=== PATIENT | female | born 1930 | race Caucasian/White ===

== ENCOUNTER 2017-10-05 11:54 | Observation (INO) | payer MEDICARE, OTHER ==
--- NOTE | 2017-10-05 12:31 | EDM.PDOC ---
ED HPI GENERAL MEDICAL PROBLEM - General Chief Complaint: Neuro Symptoms/Deficits Stated Complaint: dizzy Time Seen by Provider: 10/05/17 12:20 Source of Information: Reports: Patient History Limitations: Reports: No Limitations - History of Present Illness INITIAL COMMENTS - FREE TEXT/NARRATIVE: Todd is an 86 year old female with PMH of TIA, hypertension, cataracts, shingles , GERD, and hyperlipidemia, who presents to the ED with complaints of dizziness. She reports the dizziness started at 0930 this morning. She describes it as a lightheaded sensation. She reports a history of TIA, which started with dizziness, so she became concerned. She does report her blood pressure was elevated at home as well. She did take her blood pressure medications, as well as her Plavix this morning. Denies any chest pain, headache , shortness of breath, numbness, tingling, weakness in extremity, facial droop, or difficulty ambulating. She reports she did have a head cold about a month ago , but she has otherwise been feeling well. She is conversing in full complete sentences. She is alert and oriented x4. She denies any pain. She has not had any weakness. She is moving all extremities without difficulty. NIH is a zero. Onset: Today Onset Date: 10/05/17 Onset Time: 09:30 Duration: Constant Location: Reports: Head Associated Symptoms: Denies: Confusion, Chest Pain, Cough, cough w sputum, Diaphoresis, Fever/Chills, Headaches, Loss of Appetite, Malaise, Nausea/Vomiting , Rash, Seizure, Shortness of Breath, Syncope, Weakness - Related Data Allergies Allergy/AdvReac Type Severity Reaction Status Date / Time aspirin Allergy Nausea Verified 10/05/17 12:51 Home Meds: Home Meds Clopidogrel [Plavix] 75 mg PO DAILY 03/26/16 [History] Prednisolone [IJD: Prelone 15 MG/5 ML] 1 drop EYERT BID 03/26/16 [History] Simvastatin [Zocor] 20 mg PO BEDTIME 03/26/16 [History] Timolol [Betimol] 1 drop EYEBOTH BID 03/26/16 [History] amLODIPine [Norvasc] 5 mg PO DAILY 03/26/16 [History] Loratadine [Claritin] 10 mg PO DAILY PRN 10/05/17 [History] guaiFENesin [Mucinex] 600 mg PO BEDTIME PRN 10/05/17 [History] Past Medical History HEENT History: Reports: Cataract Cardiovascular History: Reports: High Cholesterol, Hypertension Gastrointestinal History: Reports: GERD, Other (See Below) Other Gastrointestinal History: GLUTEN INTOL Genitourinary History: Reports: Other (See Below) Other Genitourinary History: frequent urination Musculoskeletal History: Reports: Fracture Other Musculoskeletal History: bilateral arms, collar bone fx Neurological History: Reports: TIA Other Neuro History: [id number] - Past Surgical History HEENT Surgical History: Reports: Cataract Surgery Female Surgical History: Reports: Section, Hysterectomy Social & Family History - Tobacco Use Smoking Status *Q: Never Smoker Years of Tobacco use: 1 - Caffeine Use Caffeine Use: Reports: None - Alcohol Use Days Per Week of Alcohol Use: 0 - Recreational Drug Use Recreational Drug Use: No ED ROS GENERAL - Review of Systems Review Of Systems: See Below Constitutional: Reports: No Symptoms. Denies: Fever, Chills, Malaise, Weakness , Fatigue HEENT: Reports: No Symptoms. Denies: Rhinitis, Sinus Problem, Throat Pain, Vision Change Respiratory: Reports: No Symptoms. Denies: Shortness of Breath, Pleuritic Chest Pain, Cough, Sputum Cardiovascular: Reports: Blood Pressure Problem (elevated), Lightheadedness. Denies: Chest Pain, Dyspnea on Exertion, Edema, Palpitations, Syncope Endocrine: Reports: No Symptoms. Denies: Fatigue GI/Abdominal: Reports: No Symptoms. Denies: Abdominal Pain, Diarrhea, Nausea, Vomiting : Reports: Frequency. Denies: Dysuria, Flank Pain, Urgency Musculoskeletal: Reports: No Symptoms Skin: Reports: No Symptoms. Denies: Cyanosis, Pallor, Diaphoresis Neurological: Reports: Dizziness. Denies: Confusion, Headache, Numbness, Pre- Existing Deficit, Syncope, Tingling, Difficulty Walking, Weakness, Gait Disturbance Psychiatric: Reports: No Symptoms. Denies: Anxiety Hematologic/Lymphatic: Reports: Easy Bleeding, Easy Bruising Immunologic: Reports: No Symptoms ED EXAM, NEURO - Physical Exam Exam: See Below Exam Limited By: No Limitations General Appearance: Alert, WD/WN, No Apparent Distress Eye Exam: Right Eye: Abnormal Pupil, Other (previous shingles), Left Eye: Normal Fundi, Normal Inspection, PERRL, Bilateral Eye: EOMI Ears: Normal External Exam, Normal Canal, Hearing Grossly Normal, Normal TMs Nose: Normal Inspection, Normal Mucosa, No Blood Throat/Mouth: Normal Inspection, Normal Lips, Normal Teeth, Normal Gums, Normal Oropharynx, Normal Voice, No Airway Compromise Head Exam: Atraumatic, Normocephalic Neck: Normal Inspection, Supple, Non-Tender, Full Range of Motion Respiratory/Chest: No Respiratory Distress, Lungs Clear, Normal Breath Sounds, No Accessory Muscle Use, Chest Non-Tender Cardiovascular: Normal Peripheral Pulses, Regular Rate, Rhythm, No Edema, No Gallop, No JVD, No Murmur, No Rub GI/Abdominal: Normal Bowel Sounds, Soft, Non-Tender, No Organomegaly, No Distention, No Abnormal Bruit, No Mass Neurological: Alert, Normal Mood/Affect, Normal Dorsiflexion, CN II-XII Intact, Normal Plantar Flexion, Normal Gait, Normal Reflexes, No Motor/Sensory Deficits , Oriented x 3. No: Abnormal Gait Back Exam: Normal Inspection, Full Range of Motion. No: CVA Tenderness (L), CVA Tenderness (R) Extremities: Normal Inspection, Normal Range of Motion, Non-Tender, No Pedal Edema, Normal Capillary Refill Psychiatric: Normal Affect, Normal Mood Skin Exam: Warm, Dry, Intact, Normal Color, No Rash Course - Vital Signs Last Recorded V/S: Last Vital Signs Temp 97.7 F 10/05/17 13:06 Pulse 89 10/05/17 13:18 Resp 20 10/05/17 13:18 BP 129/78 10/05/17 13:18 Pulse Ox 99 10/05/17 13:18 - Orders/Labs/Meds Orders: Active Orders 24 hr Category Date Time Status Patient Status Manage Transfer [TRANSFER] Routine ADT 10/05/17 14:22 Ordered Head wo Cont [CT] Stat Exams 10/05/17 12:13 Taken Resuscitation Status Routine Resus Stat 10/05/17 14:25 Ordered Labs: Laboratory Tests 10/05/17 10/05/17 10/05/17 Range/Units 12:28 12:28 12:31 WBC 5.2 (5.0-10.0) 10^3/uL RBC 4.72 (4.00-5.50) 10^6/uL Hgb 14.2 (12.0-16.0) g/dL Hct 42.3 (37.0-47.0) % MCV 89.6 (82.0-94.0) fL MCH 30.1 (27.0-32.0) pg MCHC 33.6 (33.0-38.0) g/dL RDW Coeff of Jasmeet 12.1 (11.0-15.0) % Plt Count 284 (150-400) 10^3/uL Neut % (Auto) 53.9 (35-85) % Lymph % (Auto) 32.6 (10-55) % [place] % (Auto) 9.7 (0-16) % Eos % (Auto) 2.7 (0-5) % Baso % (Auto) 1.1 (0-3) % Neut # (Auto) 2.82 (1.80-7.00) 10^3/uL Lymph # (Auto) 1.71 (1.00-4.80) 10^3/uL [place] # (Auto) 0.51 (0.00-0.80) 10^3/uL Eos # (Auto) 0.14 (0.00-0.45) 10^3/uL Baso # (Auto) 0.06 10^3/uL PT 10.4 (9.7-12.3) SEC INR 0.96 (0.92-1.18) APTT 25.2 (20.0-45.0) SEC Sodium 142 (136-145) mEq/L Potassium 4.5 (3.5-5.0) mEq/L Chloride 104 (98-106) mEq/L Carbon Dioxide 27 (21-32) mmol/L BUN 14 (7-18) mg/dL Creatinine 0.9 (0.6-1.0) mg/dL Est Cr Clr Drug Dosing 32.60 mL/min Estimated GFR (MDRD) 59 L (>=60) mL/min Glucose 101 H (75-99) mg/dL Calcium 9.4 (8.4-10.1) mg/dL Troponin I < 0.017 (0.00-0.06) ng/mL C-Reactive Protein < 0.2 L (0.2-0.8) mg/dL Urine Color (YELLOW) Urine Appearance (CLEAR) Urine pH (4.5-8.0) Ur Specific [place] (1.003-1.020) Urine Protein (NEGATIVE) mg/dL Urine Glucose (UA) (NEGATIVE) mg/dL Urine Ketones (NEGATIVE) mg/dL Urine Occult Blood (NEGATIVE) Urine Nitrite (NEGATIVE) Urine Bilirubin (NEGATIVE) Urine Urobilinogen (0.2-1.0) EU/dL Ur Leukocyte Esterase (NEGATIVE) Urine RBC (0-5) /HPF Urine WBC (0-5) /HPF 10/05/17 Range/Units 12:33 WBC (5.0-10.0) 10^3/uL RBC (4.00-5.50) 10^6/uL Hgb (12.0-16.0) g/dL Hct (37.0-47.0) % MCV (82.0-94.0) fL MCH (27.0-32.0) pg MCHC (33.0-38.0) g/dL RDW Coeff of Jasmeet (11.0-15.0) % Plt Count (150-400) 10^3/uL Neut % (Auto) (35-85) % Lymph % (Auto) (10-55) % [place] % (Auto) (0-16) % Eos % (Auto) (0-5) % Baso % (Auto) (0-3) % Neut # (Auto) (1.80-7.00) 10^3/uL Lymph # (Auto) (1.00-4.80) 10^3/uL [place] # (Auto) (0.00-0.80) 10^3/uL Eos # (Auto) (0.00-0.45) 10^3/uL Baso # (Auto) 10^3/uL PT (9.7-12.3) SEC INR (0.92-1.18) APTT (20.0-45.0) SEC Sodium (136-145) mEq/L Potassium (3.5-5.0) mEq/L Chloride (98-106) mEq/L Carbon Dioxide (21-32) mmol/L BUN (7-18) mg/dL Creatinine (0.6-1.0) mg/dL Est Cr Clr Drug Dosing mL/min Estimated GFR (MDRD) (>=60) mL/min Glucose (75-99) mg/dL Calcium (8.4-10.1) mg/dL Troponin I (0.00-0.06) ng/mL C-Reactive Protein (0.2-0.8) mg/dL Urine Color Light yellow (YELLOW) Urine Appearance Clear (CLEAR) Urine pH 7.0 (4.5-8.0) Ur Specific [place] 1.015 (1.003-1.020) Urine Protein Negative (NEGATIVE) mg/dL Urine Glucose (UA) Negative (NEGATIVE) mg/dL Urine Ketones Negative (NEGATIVE) mg/dL Urine Occult Blood Trace-lysed H (NEGATIVE) Urine Nitrite Negative (NEGATIVE) Urine Bilirubin Negative (NEGATIVE) Urine Urobilinogen 0.2 (0.2-1.0) EU/dL Ur Leukocyte Esterase Negative (NEGATIVE) Urine RBC 0-5 (0-5) /HPF Urine WBC Not seen (0-5) /HPF - Radiology Interpretation Free Text/Narrative:: Ct Head negative for any acute infarct or bleed. CT Results Date: 10/05/17 - Re-Assessments/Exams Free Text/Narrative Re-Assessment/Exam: Discussed lab work, EKG, and CT of head with patient and friend. Lab work is all stable. CT is negative. Discussed case with Dr. Talbot. Will admit patient to observation. Departure - Departure Time of Disposition: 02:20 Disposition: Refer to Observation Condition: Good Clinical Impression: Dizziness - Discharge Information Referrals: Patel Talbot MD [Primary Care Provider] - Forms: ED Department Discharge - Problem List & Annotations (1) Hypertension SNOMED Code(s): 60657600 Code(s): I10 - ESSENTIAL (PRIMARY) HYPERTENSION Status: Chronic Qualifiers: Hypertension type: essential hypertension Qualified Code(s): I10 - Essential (primary) hypertension (2) Dizziness SNOMED Code(s): 127339292 Code(s): R42 - DIZZINESS AND GIDDINESS Status: Acute Priority: High - Problem List Review Problem List Initiated/Reviewed/Updated: Yes - My Orders Last 24 Hours: My Active Orders 10/05/17 12:13 Head wo Cont [CT] Stat 10/05/17 14:22 Patient Status Manage Transfer [TRANSFER] Routine 10/05/17 14:25 Resuscitation Status Routine - Assessment/Plan Admission H&P: Please use this note as an admission H&P Last 24 Hours: My Active Orders 10/05/17 12:13 Head wo Cont [CT] Stat 10/05/17 14:22 Patient Status Manage Transfer [TRANSFER] Routine 10/05/17 14:25 Resuscitation Status Routine Plan: Will admit patient to observation with telemetry to Dr. Talbot
[2017-10-05 12:50] LABS: CHLORIDE,CL 104 mEq/L (98-106); SODIUM,NA 142 mEq/L (136-145)
[2017-10-05] MEDS ORDERED: Temazepam 15 MG Cap PO PRN (14:55)
[2017-10-05] MEDS ORDERED: LORATADINE 10 MG PO PRN (14:55)
[2017-10-05] MEDS ORDERED: Acetaminophen 325 MG Tab PO PRN (14:55)
[2017-10-05] MEDS ORDERED: Magnesium Hydroxide 400 MG/5 ML Susp 30 ML Cup PO PRN (14:55)
[2017-10-05] MEDS ORDERED: Sodium Chloride 0.9% 10 ML Syringe FLUSH PRN (14:55)
[2017-10-05] MEDS ORDERED: guaiFENesin 200 MG Tab PO PRN (14:55)
[2017-10-05] MEDS ORDERED: Ondansetron 4 MG/2 ML SDV IV PRN (14:55)
[2017-10-05] MEDS ORDERED: Simvastatin 20 MG Tab PO SCH (20:00)
[2017-10-05] MEDS ORDERED: SIMVASTATIN 40 MG PO SCH (20:00)
[2017-10-05] MEDS: PREDNISOLONE ACETATE 1% EYERT SCH (20:30)
[2017-10-05] MEDS: TIMOLOL MALEATE 0.5% EYERT SCH (20:30)
[2017-10-06] MEDS ORDERED: amLODIPine 2.5 MG Tab PO SCH (08:00)
[2017-10-06] MEDS ORDERED: amLODIPine 10 MG Tab*PT OWN MED PO SCH (08:00)
[2017-10-06] MEDS ORDERED: Clopidogrel 75 MG Tab*PT OWN MED PO SCH (08:00)
[2017-10-06] MEDS: PREDNISOLONE ACETATE 1% EYERT SCH (08:15)
[2017-10-06] MEDS: TIMOLOL MALEATE 0.5% EYERT SCH (08:16)
[2017-10-06 08:47] VITALS: BP 140/68
--- NOTE | 2017-10-08 08:50 | DISCH ---
ADMISSION DIAGNOSES: 1. Lightheadedness, questionable transient ischemic attack. 2. Anxiety. DISCHARGE DIAGNOSIS: 1. HISTORY OF TRANSIENT ISCHEMIC ATTACK. 2. ANXIETY, PROBABLY RELATED TO DEPRESSION. 3. HYPERTENSION. 4. HYPERLIPIDEMIA. HISTORY: The patient is an 86-year-old female with a prior history of TIA. She presented with some dizziness and feeling some anxiety. She was concerned about a TIA, workup was negative in the emergency room. It was elected to put her in overnight for observation. HOSPITAL COURSE: The patient did well while here. She really did not have any difficulty. Neuro checks were fine. She had no signs of any deficits during her stay. She did admit to significant issues with dizziness and we are going to start her on daily dose of sertraline. We will follow her up clinically as appropriate. She has had routine followup cares regarding her carotids in the past and with aggressive lipid management. This time, I am not going to make any other changes. I will see her back in my office in 2 weeks. COMPLICATIONS DURING HER STAY: None. CONSULTATIONS: None. DISPOSITION: Discharged to home. JENNY /[id number]
== END 2017-10-06 10:20 | disposition home or self-care (01) ==
LOC: CC.ED 11:54 → CC.MS 14:51 → UNDOADMOB 14:51 → CC.MS 14:55
PROVIDERS: ADMIT Nurse Practitioner Family; ATTEND Family Medicine
DX: R42 Dizziness and giddiness (principal); F41.8 Other specified anxiety disorders; I10 Essential (primary) hypertension; E78.5 Hyperlipidemia, unspecified; Z86.73 Personal history of transient ischemic attack (TIA), and cerebral infarction without residual deficits; K21.9 Gastro-esophageal reflux disease without esophagitis; Z88.6 Allergy status to analgesic agent; Z79.02 Long term (current) use of antithrombotics/antiplatelets; Z79.899 Other long term (current) drug therapy; Z90.710 Acquired absence of both cervix and uterus; Z98.890 Other specified postprocedural states
CPT/HCPCS: 36415; 70450; 80048; 81001; 84484; 85025; 85610; 85730; 86140; 93005; 99285; A9270; 93010; 99217; 99220; G0378

== ENCOUNTER 2018-10-25 17:09 | Inpatient (IN) | payer MEDICARE, OTHER ==
[2018-10-25] MEDS ORDERED: Acetaminophen 325 MG Tab PO PRN (17:13)
[2018-10-25] MEDS ORDERED: Sodium Chloride 0.9% 10 ML Syringe FLUSH PRN (17:13)
[2018-10-25] MEDS: Pantoprazole 40 MG Vial IVPUSH SCH (18:00)
[2018-10-25] MEDS: Lactated Ringers 1,000 ML IV SCH (18:10)
[2018-10-25] MEDS ORDERED: Iopamidol 612 MG/ML 100 ML Bottle IVPUSH ONE (20:48)
[2018-10-25] MEDS: ACETAMINOPHEN PO SCH (21:18)
[2018-10-25] MEDS: Timolol Maleate 0.5% Ophth Soln 5 ML Bottle EYEBOTH SCH (21:19)
[2018-10-25] MEDS: prednisoLONE Acetate 1% Ophth Susp 5 ML Bottle EYERT SCH (21:19)
--- NOTE | 2018-10-25 22:27 | PCM.SN ---
- Free Text/Narrative Note: Call from radiologist reporting 15 cm segment of thickened bowel wall with surrounding inflammation in distal descending and proximal sigmoid colon of likely infectious etiology. Stool studies pending. Will prophylactically start IV Flagyl while awaiting stool studies.
[2018-10-25] MEDS ORDERED: metroNIDAZOLE/Normal Saline 500 MG in Premix Bag 1 BAG IV SCH (22:30)
[2018-10-25] MEDS: metroNIDAZOLE/Normal Saline 500 MG in Premix Bag 1 BAG IV SCH (23:49)
[2018-10-26 08:10] LABS: CHLORIDE,CL 104 mEq/L (98-106); SODIUM,NA 141 mEq/L (136-145)
[2018-10-26] MEDS: Lactated Ringers 1,000 ML IV SCH (08:32)
[2018-10-26] MEDS: metroNIDAZOLE/Normal Saline 500 MG in Premix Bag 1 BAG IV SCH ×2 (08:33→16:31)
[2018-10-26] MEDS: amLODIPine 10 MG Tab PO SCH (08:33)
[2018-10-26] MEDS: Timolol Maleate 0.5% Ophth Soln 5 ML Bottle EYEBOTH SCH ×2 (08:36→19:36)
[2018-10-26] MEDS: prednisoLONE Acetate 1% Ophth Susp 5 ML Bottle EYERT SCH ×2 (08:36→19:36)
--- NOTE | 2018-10-26 13:51 | PCM.PN ---
- General Info Date of Service: 10/26/18 Admission Dx/Problem (Free Text): Diarrhea Lower GI bleed Subjective Update: Todd is a pleasant 87 year old female who was admitted to the hospital from the clinic 10/25/2017 for c/o ongoing diarrhea and lower GI bleed. She had reportedly been having episodes of diarrhea lasting ~ 4 days at a time intermittently over the last 20-25 days. Ports that yesterday she did note some bright red blood in her stools. Reports blood is small amount and at times has clots. She reports the last few times she had bowel movements she did feel lightheaded while sitting on the stool. She has not had any bloody stools since admit. Nursing reports stools are soft and not watery or loose. She does report she continues to have some ongoing abdominal pain on the right lateral side and left lower abdomen. Describes it as mild and cramping. Reports she has cramping anytime she drinks something. She did have a CT of her abdomen and pelvis yesterday revealing a 15 cm segment of thickened bowel wall and surrounding inflammation in her distal descending and proximal sigmoid colon favorable to be infectious. Stool for C. difficile was not able to be ran as stool was formed. Nursing staff reports she has not been having loose stools. Stool culture is pending. She was started on Flagyl IV last evening and has been tolerating well. She has been afebrile. Has been tolerating clear liquid diet. Functional Status: Reports: Pain Controlled, Tolerating Diet (clear liquid), Ambulating, Urinating. Denies: New Symptoms - Review of Systems General: Denies: Fever, Weakness, Fatigue, Chills Pulmonary: Reports: No Symptoms Cardiovascular: Reports: No Symptoms Gastrointestinal: Reports: Abdominal Pain, Diarrhea (soft stools), Hematochezia. Denies: Decreased Appetite, Nausea, Vomiting Genitourinary: Reports: No Symptoms Musculoskeletal: Reports: No Symptoms Skin: Reports: No Symptoms Neurological: Reports: No Symptoms Psychiatric: Reports: No Symptoms - Patient Data Vitals - Most Recent: Last Vital Signs Temp 97.4 F 10/26/18 12:00 Pulse 71 10/26/18 12:00 Resp 20 10/26/18 12:00 BP 122/52 L 10/26/18 12:00 Pulse Ox 96 10/26/18 12:00 Weight - Most Recent: 122 lb 1.6 oz I&O - Last 24 Hours: Intake & Output 10/25/18 10/26/18 10/26/18 22:59 06:59 14:59 Intake Total 8185 957 7328 Output Total 200 200 475 Balance 1000 200 525 Lab Results Last 24 Hours: Laboratory Results - last 24 hr 10/25/18 10/25/18 10/26/18 Range/Units 17:13 17:13 01:00 WBC 8.9 (5.0-10.0) 10^3/uL RBC 4.93 (4.00-5.50) 10^6/uL Hgb 14.9 (12.0-16.0) g/dL Hct 44.2 (37.0-47.0) % MCV 89.7 (82.0-94.0) fL MCH 30.2 (27.0-32.0) pg MCHC 33.7 (33.0-38.0) g/dL RDW Coeff of Jasmeet 12.2 (11.0-15.0) % Plt Count 234 (150-400) 10^3/uL Neut % (Auto) 75.4 (35-85) % Lymph % (Auto) 15.2 (10-55) % [place] % (Auto) 8.7 (0-16) % Eos % (Auto) 0.4 (0-5) % Baso % (Auto) 0.3 (0-3) % Neut # (Auto) 6.71 (1.80-7.00) 10^3/uL Lymph # (Auto) 1.36 (1.00-4.80) 10^3/uL [place] # (Auto) 0.78 (0.00-0.80) 10^3/uL Eos # (Auto) 0.04 (0.00-0.45) 10^3/uL Baso # (Auto) 0.03 10^3/uL Sodium 141 (136-145) mEq/L Potassium 3.6 D (3.5-5.0) mEq/L Chloride 102 (98-106) mEq/L Carbon Dioxide 28 (21-32) mmol/L BUN 14 (7-18) mg/dL Creatinine 0.9 (0.6-1.0) mg/dL Est Cr Clr Drug Dosing 31.98 mL/min Estimated GFR (MDRD) 59 L (>=60) mL/min Glucose 107 H (75-99) mg/dL Calcium 9.3 (8.4-10.1) mg/dL Total Bilirubin 0.7 (0.0-1.0) mg/dL AST 22 (15-37) U/L ALT 25 (12-78) U/L Alkaline Phosphatase 103 (46-116) U/L C-Reactive Protein (0.2-0.8) mg/dL Total Protein 7.8 (6.4-8.2) g/dL Albumin 3.6 (3.4-5.0) g/dL Urine Color Yellow (YELLOW) Urine Appearance Clear (CLEAR) Urine pH 7.0 (4.5-8.0) Ur Specific [place] 1.010 (1.003-1.020) Urine Protein Negative (NEGATIVE) mg/dL Urine Glucose (UA) Negative (NEGATIVE) mg/dL Urine Ketones Negative (NEGATIVE) mg/dL Urine Occult Blood Trace-lysed H (NEGATIVE) Urine Nitrite Negative (NEGATIVE) Urine Bilirubin Negative (NEGATIVE) Urine Urobilinogen 0.2 (0.2-1.0) EU/dL Ur Leukocyte Esterase Negative (NEGATIVE) Urine RBC Not seen (0-5) /HPF Urine WBC Not seen (0-5) /HPF 10/26/18 10/26/18 Range/Units 08:00 08:00 WBC 8.7 (5.0-10.0) 10^3/uL RBC 4.02 (4.00-5.50) 10^6/uL Hgb 12.1 (12.0-16.0) g/dL Hct 36.9 L (37.0-47.0) % MCV 91.8 (82.0-94.0) fL MCH 30.1 (27.0-32.0) pg MCHC 32.8 L (33.0-38.0) g/dL RDW Coeff of Jasmeet 12.3 (11.0-15.0) % Plt Count 194 (150-400) 10^3/uL Neut % (Auto) 72.2 (35-85) % Lymph % (Auto) 17.4 (10-55) % [place] % (Auto) 8.9 (0-16) % Eos % (Auto) 1.2 (0-5) % Baso % (Auto) 0.3 (0-3) % Neut # (Auto) 6.26 (1.80-7.00) 10^3/uL Lymph # (Auto) 1.51 (1.00-4.80) 10^3/uL [place] # (Auto) 0.77 (0.00-0.80) 10^3/uL Eos # (Auto) 0.10 (0.00-0.45) 10^3/uL Baso # (Auto) 0.03 10^3/uL Sodium 141 (136-145) mEq/L Potassium 3.7 (3.5-5.0) mEq/L Chloride 104 (98-106) mEq/L Carbon Dioxide 29 (21-32) mmol/L BUN 11 (7-18) mg/dL Creatinine 0.8 (0.6-1.0) mg/dL Est Cr Clr Drug Dosing 35.97 mL/min Estimated GFR (MDRD) > 60 (>=60) mL/min Glucose 86 (75-99) mg/dL Calcium 8.4 (8.4-10.1) mg/dL Total Bilirubin (0.0-1.0) mg/dL AST (15-37) U/L ALT (12-78) U/L Alkaline Phosphatase (46-116) U/L C-Reactive Protein 0.9 H (0.2-0.8) mg/dL Total Protein (6.4-8.2) g/dL Albumin (3.4-5.0) g/dL Urine Color (YELLOW) Urine Appearance (CLEAR) Urine pH (4.5-8.0) Ur Specific [place] (1.003-1.020) Urine Protein (NEGATIVE) mg/dL Urine Glucose (UA) (NEGATIVE) mg/dL Urine Ketones (NEGATIVE) mg/dL Urine Occult Blood (NEGATIVE) Urine Nitrite (NEGATIVE) Urine Bilirubin (NEGATIVE) Urine Urobilinogen (0.2-1.0) EU/dL Ur Leukocyte Esterase (NEGATIVE) Urine RBC (0-5) /HPF Urine WBC (0-5) /HPF Peter Results Last 24 Hours: Microbiology 10/26/18 10:10 C. difficile DNA Amplification - Final Stool / Feces 10/26/18 07:30 Stool Occult Blood (PETER) - Final Stool / Feces Med Orders - Current: Current Medications Acetaminophen (Tylenol) 650 mg PO Q4H PRN PRN Reason: Pain (Mild 1-3)/fever Amlodipine Besylate (Norvasc) 10 mg PO DAILY [facility] Last Admin: 10/26/18 08:33 Dose: 10 mg Lactated Ringer's (Ringers, Lactated) 1,000 mls @ 75 mls/hr IV ASDIRECTED [facility] Last Admin: 10/26/18 08:32 Dose: 75 mls/hr Metronidazole 500 mg/ Premix 100 mls @ 100 mls/hr IV Q8H [facility] Last Admin: 10/26/18 08:33 Dose: 100 mls/hr Acetaminophen 8 Hour (650 Mg Own Med) 0 mg PO QPM [facility] Last Admin: 10/25/18 21:18 Dose: 650 mg Pantoprazole Sodium (Protonix Iv) 40 mg IVPUSH Q24H [facility] Last Admin: 10/25/18 18:00 Dose: 40 mg Prednisolone Acetate (Pred Forte 1% Ophth Susp) 0 ml EYERT BID [facility] Last Admin: 10/26/18 08:36 Dose: 1 drop Sodium Chloride (Saline Flush) 10 ml FLUSH ASDIRECTED PRN PRN Reason: Keep Vein Open Timolol Maleate (Timoptic 0.5% Ophth Soln) 0 ml EYEBOTH BID [facility] Last Admin: 10/26/18 08:36 Dose: 1 drop Discontinued Medications Metronidazole 500 mg/ Premix 100 mls @ 100 mls/hr IV Q8H [facility] Last Admin: 10/26/18 00:26 Dose: Not Given Iopamidol (Isovue-300 (61%)) 100 ml IVPUSH ONETIME ONE Stop: 10/25/18 20:49 Last Admin: 10/25/18 20:59 Dose: 100 ml - Exam Quality Assessment: DVT Prophylaxis General: Alert, Oriented Neck: Supple Lungs: Clear to Auscultation, Normal Respiratory Effort Cardiovascular: Regular Rate, Regular Rhythm GI/Abdominal Exam: Normal Bowel Sounds, Soft, No Distention, No Mass, Pelvis Stable, Tender (bilatearl lower quadrants). No: Guarding Back Exam: Normal Inspection, Full Range of Motion Extremities: Normal Inspection, Normal Range of Motion, Non-Tender, No Pedal Edema, Normal Capillary Refill Neurological: No New Focal Deficit Psy/Mental Status: Alert, Normal Affect, Normal Mood - Problem List & Annotations (1) Colitis presumed infectious SNOMED Code(s): 23127171 Code(s): K52.9 - NONINFECTIVE GASTROENTERITIS AND COLITIS, UNSPECIFIED Status: Acute Current Visit: Yes (2) Acute lower GI bleeding SNOMED Code(s): 33463941 Code(s): K92.2 - GASTROINTESTINAL HEMORRHAGE, UNSPECIFIED Status: Acute Current Visit: Yes - Problem List Review Problem List Initiated/Reviewed/Updated: Yes - My Orders Last 24 Hours: My Active Orders 10/26/18 00:00 metroNIDAZOLE/Normal Saline [Flagyl 500 MG in NS 100 ML] 500 mg Premix Bag 1 bag IV Q8H - Plan Plan:: Will cover with Rocephin and Flagyl for presumed infectious colitis. Stool culture pending. Nursing reports she is not having loose stools, but rather soft formed stools, so Cdiff was not able to be ran. Fecal occult positive. Labs all stable. Hgb did drop some but stable, likely dilutional. Patient has been having good oral intake. Will d/c IVF. Discharge inappropriate due to IV antibiotics. Anticipate discharge 2-3 days pending abdominal pain and stools.
[2018-10-26] MEDS: Pantoprazole 40 MG Vial IVPUSH SCH (16:31)
[2018-10-26] MEDS: cefTRIAXone 1 GM Vial IVPUSH SCH (17:42)
[2018-10-26] MEDS: ACETAMINOPHEN PO SCH (19:36)
[2018-10-27] MEDS: metroNIDAZOLE/Normal Saline 500 MG in Premix Bag 1 BAG IV SCH ×4 (00:24→23:26)
[2018-10-27] MEDS: amLODIPine 10 MG Tab PO SCH (08:14)
[2018-10-27] MEDS: Timolol Maleate 0.5% Ophth Soln 5 ML Bottle EYEBOTH SCH ×2 (08:15→19:38)
[2018-10-27] MEDS: prednisoLONE Acetate 1% Ophth Susp 5 ML Bottle EYERT SCH ×2 (08:15→19:38)
--- NOTE | 2018-10-27 13:34 | PCM.PN ---
- General Info Date of Service: 10/27/18 Admission Dx/Problem (Free Text): Diarrhea Lower GI bleed Subjective Update: Todd reports she is feeling much better this morning. Has not been having any further diarrhea. She reports her cramping in her abdomen has also resolved. Does continue to have some tenderness in left lower and mid abdomen, but feels it has improved some. She has been afebrile. VSS. Reports she has been tolerating a clear liquid diet. No other complaints. - Review of Systems General: Denies: Fever, Weakness, Fatigue, Chills HEENT: Reports: No Symptoms Pulmonary: Reports: No Symptoms. Denies: Shortness of Breath, Cough, Sputum Cardiovascular: Reports: No Symptoms Gastrointestinal: Reports: Abdominal Pain (tenderness). Denies: Constipation, Diarrhea, Hematochezia, Melena, Nausea, Vomiting Genitourinary: Reports: No Symptoms Musculoskeletal: Reports: No Symptoms Skin: Reports: No Symptoms Neurological: Reports: No Symptoms Psychiatric: Reports: No Symptoms - Patient Data Vitals - Most Recent: Last Vital Signs Temp 97.3 F 10/27/18 12:00 Pulse 91 10/27/18 12:00 Resp 20 10/27/18 12:00 BP 163/66 H 10/27/18 12:00 Pulse Ox 98 10/27/18 12:00 Weight - Most Recent: 125 lb 9.6 oz I&O - Last 24 Hours: Intake & Output 10/26/18 10/27/18 10/27/18 22:59 06:59 14:59 Intake Total 400 600 Output Total 850 600 Balance -450 0 Lab Results Last 24 Hours: Laboratory Results - last 24 hr 10/27/18 10/27/18 10/27/18 Range/Units 08:17 08:17 08:17 WBC 7.0 (5.0-10.0) 10^3/uL RBC 4.12 (4.00-5.50) 10^6/uL Hgb 12.2 (12.0-16.0) g/dL Hct 38.1 (37.0-47.0) % MCV 92.5 (82.0-94.0) fL MCH 29.6 (27.0-32.0) pg MCHC 32.0 L (33.0-38.0) g/dL RDW Coeff of Jasmeet 12.5 (11.0-15.0) % Plt Count 208 (150-400) 10^3/uL Neut % (Auto) 65.0 (35-85) % Lymph % (Auto) 22.0 (10-55) % [place] % (Auto) 10.2 (0-16) % Eos % (Auto) 2.4 (0-5) % Baso % (Auto) 0.4 (0-3) % Neut # (Auto) 4.54 (1.80-7.00) 10^3/uL Lymph # (Auto) 1.54 (1.00-4.80) 10^3/uL [place] # (Auto) 0.71 (0.00-0.80) 10^3/uL Eos # (Auto) 0.17 (0.00-0.45) 10^3/uL Baso # (Auto) 0.03 10^3/uL Sodium 145 (136-145) mEq/L Potassium 3.7 (3.5-5.0) mEq/L Chloride 107 H (98-106) mEq/L Carbon Dioxide 28 (21-32) mmol/L BUN 10 (7-18) mg/dL Creatinine 0.9 (0.6-1.0) mg/dL Est Cr Clr Drug Dosing 31.98 mL/min Estimated GFR (MDRD) 59 L (>=60) mL/min Glucose 96 (75-99) mg/dL Lactic Acid 1.5 (0.4-2.0) mmol/L Calcium 8.6 (8.4-10.1) mg/dL C-Reactive Protein 1.0 H (0.2-0.8) mg/dL Arthur Results Last 24 Hours: Microbiology 10/26/18 10:10 C. difficile DNA Amplification - Final Stool / Feces Med Orders - Current: Current Medications Acetaminophen (Tylenol) 650 mg PO Q4H PRN PRN Reason: Pain (Mild 1-3)/fever Amlodipine Besylate (Norvasc) 10 mg PO DAILY [facility] Last Admin: 10/27/18 08:14 Dose: 10 mg Ceftriaxone Sodium (Rocephin) 1 gm IVPUSH Q24H [facility] Last Admin: 10/26/18 17:42 Dose: 1 gm Metronidazole 500 mg/ Premix 100 mls @ 100 mls/hr IV Q8H [facility] Last Admin: 10/27/18 08:14 Dose: 100 mls/hr Acetaminophen 8 Hour (650 Mg Own Med) 0 mg PO QPM [facility] Last Admin: 10/26/18 19:36 Dose: 650 mg Pantoprazole Sodium (Protonix Iv) 40 mg IVPUSH Q24H [facility] Last Admin: 10/26/18 16:31 Dose: 40 mg Prednisolone Acetate (Pred Forte 1% Ophth Susp) 0 ml EYERT BID [facility] Last Admin: 10/27/18 08:15 Dose: 1 drop Sodium Chloride (Saline Flush) 10 ml FLUSH ASDIRECTED PRN PRN Reason: Keep Vein Open Timolol Maleate (Timoptic 0.5% Ophth Soln) 0 ml EYEBOTH BID [facility] Last Admin: 10/27/18 08:15 Dose: 1 drop Discontinued Medications Lactated Ringer's (Ringers, Lactated) 1,000 mls @ 75 mls/hr IV ASDIRECTED [facility] Last Admin: 10/26/18 08:32 Dose: 75 mls/hr Metronidazole 500 mg/ Premix 100 mls @ 100 mls/hr IV Q8H [facility] Last Admin: 10/26/18 00:26 Dose: Not Given Iopamidol (Isovue-300 (61%)) 100 ml IVPUSH ONETIME ONE Stop: 10/25/18 20:49 Last Admin: 10/25/18 20:59 Dose: 100 ml - Exam General: Alert, Oriented, No Acute Distress Neck: Supple Lungs: Clear to Auscultation, Normal Respiratory Effort Cardiovascular: Regular Rate, Regular Rhythm GI/Abdominal Exam: Normal Bowel Sounds, Soft, No Distention, Tender (left lower , mid abdomen) Back Exam: Normal Inspection, Full Range of Motion Extremities: Normal Inspection, Normal Range of Motion, Non-Tender, No Pedal Edema, Normal Capillary Refill Neurological: No New Focal Deficit Psy/Mental Status: Alert, Normal Affect, Normal Mood - Problem List & Annotations (1) Colitis presumed infectious SNOMED Code(s): 47518002 Code(s): K52.9 - NONINFECTIVE GASTROENTERITIS AND COLITIS, UNSPECIFIED Status: Acute Current Visit: Yes (2) Acute lower GI bleeding SNOMED Code(s): 03176362 Code(s): K92.2 - GASTROINTESTINAL HEMORRHAGE, UNSPECIFIED Status: Acute Current Visit: Yes - Problem List Review Problem List Initiated/Reviewed/Updated: Yes - My Orders Last 24 Hours: My Active Orders 10/26/18 17:00 cefTRIAXone [Rocephin] 1 gm IVPUSH Q24H - Plan Plan:: Overall, patient doing well. Stool studies pending. Continue IV antibiotics. Labs all stable. Hgb stable at 12.2. VSS. Patient has been tolerating clear liquid diet. Will discuss further plan/need for further evaluation with Dr. Talbot tomorrow. Patient reports last colonoscopy was awhile back with Dr. Barillas and they were unable to complete, so she had to have lower GI series. Discharge inappropriate due to IV antibiotics. Anticipate discharge 1-2 days pending abdominal pain and stools.
[2018-10-27] MEDS: cefTRIAXone 1 GM Vial IVPUSH SCH (16:08)
[2018-10-27] MEDS: Pantoprazole 40 MG Vial IVPUSH SCH (17:24)
[2018-10-27] MEDS: ACETAMINOPHEN PO SCH (19:38)
[2018-10-28] MEDS: prednisoLONE Acetate 1% Ophth Susp 5 ML Bottle EYERT SCH (07:52)
[2018-10-28] MEDS: Timolol Maleate 0.5% Ophth Soln 5 ML Bottle EYEBOTH SCH (07:53)
[2018-10-28] MEDS: amLODIPine 10 MG Tab PO SCH (07:55)
[2018-10-28] MEDS: metroNIDAZOLE/Normal Saline 500 MG in Premix Bag 1 BAG IV SCH (07:56)
[2018-10-28 07:57] VITALS: BP 130/70
--- NOTE | 2018-10-28 10:25 | PCM.DCSUM1 ---
Discharge Summary - Hospital Course Free Text/Narrative:: Patient presented to clinic to see Yue Choe for ongoing diarrhea. She states she had in several days in a row, then no stools for days. Had not noted any changes with what she eats. Now she is seeing bright red blood in her stools. She has had darker stools at times as well. patient has felt lightheaded at times, especially with sitting on the stool to have a BM. No near syncope at other times. Was experiencing left lower quadrant pain. Low grade fevers. History of diverticulosis. Admitted to hospital for further work up with telemetry, IV fluids, CT scan of the abdomen and stools studies. Diagnosis: Stroke: No Modified Murray Scale: No Symptoms at All Modified Murray Scale Score: 0 - Discharge Data Discharge Date: 10/28/18 Discharge Disposition: DC/Tfer W/I Hosp To [place] [id number] Condition: Good - Patient Summary/Data Complications: none Hospital Course: Patient is feeling better. Less abdominal discomfort now. Had a small, brown stool yesterday, no appearance of blood at that time. Is tolerating clear liquids. Afebrile. Labs show normal WBC of 7.0. CRP of 1.0. Hemoglobin initially 14.9, stable yet at 12.2. Will transfer to swing bed for ongoing IV Rocephin and Flagyl. PT evaluation. Proceed with colonoscopy later this week. - Patient Instructions Diet: Usual Diet as Tolerated Activity: As Tolerated - Discharge Plan *PRESCRIPTION DRUG MONITORING PROGRAM REVIEWED*: Not Applicable *COPY OF PRESCRIPTION DRUG MONITORING REPORT IN PATIENT DARÍO: Not Applicable Home Medications: Home Meds Clopidogrel [Plavix] 75 mg PO DAILY 03/26/16 [History] Simvastatin [Zocor] 40 mg PO BEDTIME 03/26/16 [History] amLODIPine [Norvasc] 10 mg PO DAILY 03/26/16 [History] Loratadine [Claritin] 10 mg PO DAILY PRN 10/05/17 [History] guaiFENesin [Mucinex] 600 mg PO BEDTIME PRN 10/05/17 [History] Acetaminophen [Acetaminophen 8 Hour] 650 mg PO QPM 10/25/18 [History] Pantoprazole Sodium 40 mg PO QAM 10/25/18 [History] Timolol Maleate 1 drop EYEBOTH BID 10/25/18 [History] prednisoLONE acetate [Pred Forte 1% Ophth Susp] 1 drop EYERT BID 10/25/18 [ History] Patient Handouts: Colitis - Discharge Summary/Plan Comment DC Time >30 min.: Yes Discharge Summary/Plan Comment: Transfer to swing bed Time for evaluation/discussion with patient 15 minutes Time for orders 10 minutes Time for documentation 10 minutes - General Info Date of Service: 10/28/18 Admission Dx/Problem (Free Text: Diarrhea Lower GI bleed Functional Status: Reports: Pain Controlled, Tolerating Diet (clear liquids), Ambulating - Review of Systems General: Reports: Weakness, Fatigue. Denies: Fever HEENT: Reports: No Symptoms Pulmonary: Denies: Shortness of Breath, Cough Cardiovascular: Denies: Chest Pain, Edema, Lightheadedness Gastrointestinal: Reports: Diarrhea, Hematochezia. Denies: Abdominal Pain, Nausea, Vomiting Genitourinary: Reports: No Symptoms Musculoskeletal: Reports: No Symptoms Skin: Reports: No Symptoms Neurological: Reports: No Symptoms - Patient Data Vitals - Most Recent: Last Vital Signs Temp 97.2 F 10/28/18 08:00 Pulse 85 10/28/18 08:00 Resp 16 10/28/18 08:00 BP 130/70 10/28/18 08:00 Pulse Ox 97 10/28/18 08:00 Weight - Most Recent: 124 lb I&O - Last 24 hours: Intake & Output 10/27/18 10/28/18 10/28/18 22:59 06:59 14:59 Intake Total 1600 550 580 Output Total 1500 500 Balance 100 50 580 Med Orders - Current: Current Medications Discontinued Medications Acetaminophen (Tylenol) 650 mg PO Q4H PRN PRN Reason: Pain (Mild 1-3)/fever Amlodipine Besylate (Norvasc) 10 mg PO DAILY [facility] Last Admin: 10/28/18 07:55 Dose: 10 mg Ceftriaxone Sodium (Rocephin) 1 gm IVPUSH Q24H [facility] Last Admin: 10/27/18 16:08 Dose: 1 gm Lactated Ringer's (Ringers, Lactated) 1,000 mls @ 75 mls/hr IV ASDIRECTED [facility] Last Admin: 10/26/18 08:32 Dose: 75 mls/hr Metronidazole 500 mg/ Premix 100 mls @ 100 mls/hr IV Q8H [facility] Last Admin: 10/26/18 00:26 Dose: Not Given Metronidazole 500 mg/ Premix 100 mls @ 100 mls/hr IV Q8H [facility] Last Admin: 10/28/18 07:56 Dose: 100 mls/hr Iopamidol (Isovue-300 (61%)) 100 ml IVPUSH ONETIME ONE Stop: 10/25/18 20:49 Last Admin: 10/25/18 20:59 Dose: 100 ml Acetaminophen 8 Hour (650 Mg Own Med) 0 mg PO QPM [facility] Last Admin: 10/27/18 19:38 Dose: 650 mg Pantoprazole Sodium (Protonix Iv) 40 mg IVPUSH Q24H [facility] Last Admin: 10/27/18 17:24 Dose: 40 mg Prednisolone Acetate (Pred Forte 1% Ophth Susp) 0 ml EYERT BID [facility] Last Admin: 10/28/18 07:52 Dose: 1 drop Sodium Chloride (Saline Flush) 10 ml FLUSH ASDIRECTED PRN PRN Reason: Keep Vein Open Timolol Maleate (Timoptic 0.5% Ophth Soln) 0 ml EYEBOTH BID [facility] Last Admin: 10/28/18 07:53 Dose: 1 drop - Exam General: Reports: Alert, Oriented HEENT: Reports: Mucous Membr. Moist/[place] Neck: Reports: Supple Lungs: Reports: Clear to Auscultation, Normal Respiratory Effort Cardiovascular: Reports: Regular Rate, Regular Rhythm GI/Abdominal Exam: Normal Bowel Sounds, Soft, Tender (mild tenderness throughout ) Extremities: Normal Inspection, No Pedal Edema Skin: Reports: Warm, Dry Neurological: Reports: No New Focal Deficit
== END 2018-10-28 09:33 | disposition swing bed (61) | DRG 392 ==
LOC: CC.MS 17:09 → UNDOADMIN 17:09 → CC.MS 17:13
PROVIDERS: ADMIT Physician Assistant Medical; ATTEND Family Medicine
DX: A09 Infectious gastroenteritis and colitis, unspecified (principal); H91.93 Unspecified hearing loss, bilateral; F41.8 Other specified anxiety disorders; E78.00 Pure hypercholesterolemia, unspecified; I10 Essential (primary) hypertension; E78.5 Hyperlipidemia, unspecified; G62.9 Polyneuropathy, unspecified; Z79.52 Long term (current) use of systemic steroids; Z79.899 Other long term (current) drug therapy; Z88.8 Allergy status to other drugs, medicaments and biological substances; Z98.49 Cataract extraction status, unspecified eye; Z90.710 Acquired absence of both cervix and uterus; Z87.891 Personal history of nicotine dependence
CPT/HCPCS: 36415; 74177; 80048; 80053; 81001; 82272; 83605; 85025; 86140; 87045; 87046; A9270-GY; C9113; J0696; J3490; J7120; Q9967

== ENCOUNTER 2018-10-28 09:20 | Inpatient (IN) | payer MEDICARE, OTHER ==
[2018-10-28] MEDS ORDERED: Acetaminophen 325 MG Tab PO PRN (10:13)
[2018-10-28] MEDS ORDERED: Sodium Chloride 0.9% 10 ML Syringe FLUSH PRN ×2 (10:13)
[2018-10-28] MEDS: metroNIDAZOLE/Normal Saline 500 MG in Premix Bag 1 BAG IV SCH (16:23)
[2018-10-28] MEDS: cefTRIAXone 1 GM Vial IVPUSH SCH (16:24)
[2018-10-28] MEDS: Pantoprazole 40 MG Vial IVPUSH SCH (16:33)
[2018-10-28] MEDS: Timolol Maleate 0.5% Ophth Soln 5 ML Bottle EYEBOTH SCH (20:19)
[2018-10-28] MEDS: prednisoLONE Acetate 1% Ophth Susp 5 ML Bottle EYERT SCH (20:19)
[2018-10-28] MEDS: ACETAMINOPHEN PO SCH (20:20)
[2018-10-29] MEDS: metroNIDAZOLE/Normal Saline 500 MG in Premix Bag 1 BAG IV SCH ×3 (00:14→15:58)
[2018-10-29] MEDS: Pantoprazole 40 MG Vial IVPUSH SCH (06:53)
[2018-10-29] MEDS: amLODIPine 10 MG Tab PO SCH (07:50)
[2018-10-29] MEDS: prednisoLONE Acetate 1% Ophth Susp 5 ML Bottle EYERT SCH ×2 (07:56→19:39)
[2018-10-29] MEDS: Timolol Maleate 0.5% Ophth Soln 5 ML Bottle EYEBOTH SCH ×2 (07:57→19:39)
[2018-10-29] MEDS: cefTRIAXone 1 GM Vial IVPUSH SCH (15:35)
[2018-10-29] MEDS ORDERED: Bisacodyl 5 MG Tab PO ONE (18:00)
[2018-10-29] MEDS: ACETAMINOPHEN PO SCH (19:39)
[2018-10-30] MEDS: metroNIDAZOLE/Normal Saline 500 MG in Premix Bag 1 BAG IV SCH ×4 (00:01→23:30)
[2018-10-30] MEDS: Pantoprazole 40 MG Vial IVPUSH SCH (08:27)
[2018-10-30] MEDS: amLODIPine 10 MG Tab PO SCH (08:27)
[2018-10-30] MEDS: prednisoLONE Acetate 1% Ophth Susp 5 ML Bottle EYERT SCH ×2 (08:28→19:33)
[2018-10-30] MEDS: Timolol Maleate 0.5% Ophth Soln 5 ML Bottle EYEBOTH SCH ×2 (08:29→19:32)
[2018-10-30] MEDS: cefTRIAXone 1 GM Vial IVPUSH SCH (15:32)
[2018-10-30] MEDS ORDERED: Bisacodyl 5 MG Tab PO ONE (18:00)
[2018-10-30] MEDS ORDERED: Polyethylene Glycol 3350 Powder 238 GM Bot PO ONE (18:00)
[2018-10-30] MEDS: ACETAMINOPHEN PO SCH (19:32)
[2018-10-31] MEDS ORDERED: Lactated Ringers 1,000 ML IV SCH (06:30)
[2018-10-31] MEDS ORDERED: Midazolam 1 MG/ML 2 ML SDV ONE (06:39)
[2018-10-31] MEDS ORDERED: Meperidine PF 50 MG/ML Syringe ONE (06:40)
[2018-10-31] MEDS ORDERED: Meperidine PF 25 MG/ML Syringe ONE (06:40)
[2018-10-31] MEDS: Pantoprazole 40 MG Vial IVPUSH SCH (06:43)
[2018-10-31] MEDS ORDERED: Meperidine PF 25 MG/ML Syringe IV ONE (07:06)
[2018-10-31] MEDS ORDERED: Midazolam 1 MG/ML 2 ML SDV IV ONE (07:06)
[2018-10-31] MEDS: prednisoLONE Acetate 1% Ophth Susp 5 ML Bottle EYERT SCH ×2 (09:49→19:33)
[2018-10-31] MEDS: amLODIPine 10 MG Tab PO SCH (09:49)
[2018-10-31] MEDS: Timolol Maleate 0.5% Ophth Soln 5 ML Bottle EYEBOTH SCH ×2 (09:50→19:33)
[2018-10-31] MEDS: metroNIDAZOLE/Normal Saline 500 MG in Premix Bag 1 BAG IV SCH ×2 (09:50→16:23)
--- NOTE | 2018-10-31 14:37 | OR ---
DATE OF OPERATION: 10/31/2018 PREOPERATIVE DIAGNOSIS: COLITIS. POSTOPERATIVE DIAGNOSIS: COLITIS. SURGEON: Patel Talbot MD PROCEDURE: INCOMPLETE COLONOSCOPY TO DISTAL SIGMOID COLON. ANESTHESIA: Conscious sedation. COMPLICATIONS: None. SPECIMEN: None. FINDINGS: 1. Incomplete colonoscopy to [id number] sigmoid colon. 2. Severe diverticulosis. PLAN: The patient will continue to be followed medically. INDICATIONS: The patient was admitted with suspected ischemic versus infectious colitis of the descending colon. Colonoscopy was recommended for delineation and potential biopsy. The patient does have a history of incomplete scopes in the past due to the inability to pass. After risks and benefits weighed with the patient, she elects for a repeat attempt at a colonoscopy. DESCRIPTION OF PROCEDURE: The patient was prepped and draped, placed in left lateral decubitus position. A lubricated Olympus colonoscope was inserted and advanced to the rectosigmoid junction. Once into the sigmoid colon, the patient has significant diverticular disease. A very redundant and hard to pass in the distal sigmoid colon around 35 to 40 cm. Multiple attempts at position changes were done to safely facilitate this, but the patient was extremely uncomfortable. We felt it unsafe to proceed and elected to terminate at that time. Other than her diverticular disease, no other lesions were seen. Air was suctioned, and the scope was removed without complication. TASHA/MALICK /[id number]
[2018-10-31] MEDS: cefTRIAXone 1 GM Vial IVPUSH SCH (16:23)
[2018-10-31] MEDS: ACETAMINOPHEN PO SCH (19:33)
[2018-11-01] MEDS: metroNIDAZOLE/Normal Saline 500 MG in Premix Bag 1 BAG IV SCH ×2 (00:14→07:43)
[2018-11-01] MEDS: Pantoprazole 40 MG Vial IVPUSH SCH (06:41)
[2018-11-01] MEDS: prednisoLONE Acetate 1% Ophth Susp 5 ML Bottle EYERT SCH (07:43)
[2018-11-01] MEDS: amLODIPine 10 MG Tab PO SCH (07:43)
[2018-11-01] MEDS: Timolol Maleate 0.5% Ophth Soln 5 ML Bottle EYEBOTH SCH (07:43)
[2018-11-01 07:44] VITALS: BP 126/59
--- NOTE | 2018-11-01 16:22 | PCM.DCSUM1 ---
Discharge Summary - Hospital Course Free Text/Narrative:: Patient was initially admitted to acute inpatient due to ongoing diarrhea for many days. Became concerned as she noted bright red blood in her stools, other times it had been quite dark. Had felt lightheaded at times, especially after getting up from the stool. No fevers. Mild abdominal pain. CT scan was done and showed concerns for colitis. Was started on IV Flagyl and Rocephin. Stools were collected in acute stay, negative for c-dff. Blood had resolved. Stools less frequent. Transferred to swing bed for ongoing IV antibiotics. Plan for colonoscopy. Diagnosis: Stroke: No Modified Nafisa Scale: No Symptoms at All Modified Nafisa Scale Score: 0 - Discharge Data Discharge Date: 11/01/18 Discharge Disposition: Home, Self-Care 01 Condition: Fair - Patient Summary/Data Complications: none Consults: Consultations 10/28/18 10:16 Consult to Physician [CONS] Routine PT Evaluation and Treatment [CONS] Routine Hospital Course: Patient has done well during swing bed stay. Was having soft stools without any evidence of blood prior to taking the prep for the colonoscopy. Appetite had improved. Ambulating well in hallways. No further fevers, bloating or abdominal pain. Colonoscopy done by Dr. Talbot, unsuccessful, unable to get through. May need to have additional CT in a month or so if symptoms persist. - Patient Instructions Diet: Usual Diet as Tolerated (Diverticulosis Diet) Activity: As Tolerated - Discharge Plan *PRESCRIPTION DRUG MONITORING PROGRAM REVIEWED*: No *COPY OF PRESCRIPTION DRUG MONITORING REPORT IN PATIENT DARÍO: No Home Medications: Home Meds Clopidogrel [Plavix] 75 mg PO DAILY 03/26/16 [History] Simvastatin [Zocor] 40 mg PO BEDTIME 03/26/16 [History] amLODIPine [Norvasc] 10 mg PO DAILY 03/26/16 [History] Loratadine [Claritin] 10 mg PO DAILY PRN 10/05/17 [History] guaiFENesin [Mucinex] 600 mg PO BEDTIME PRN 10/05/17 [History] Acetaminophen [Acetaminophen 8 Hour] 650 mg PO QPM 10/25/18 [History] Pantoprazole Sodium 40 mg PO QAM 10/25/18 [History] Timolol Maleate 1 drop EYEBOTH BID 10/25/18 [History] prednisoLONE acetate [Pred Forte 1% Ophth Susp] 1 drop EYERT BID 10/25/18 [ History] Referrals: Patel Talbot MD [Primary Care Provider] - (Hospital follow up in [address] Talbot) - Discharge Summary/Plan Comment DC Time >30 min.: No - General Info Date of Service: 11/01/18 Admission Dx/Problem (Free Text: Colitis Functional Status: Reports: Pain Controlled, Tolerating Diet, Ambulating - Review of Systems General: Denies: Fever, Weakness, Fatigue, Malaise HEENT: Reports: No Symptoms Pulmonary: Denies: Shortness of Breath, Cough Cardiovascular: Denies: Chest Pain, Edema, Lightheadedness Gastrointestinal: Reports: Abdominal Pain. Denies: Hematochezia, Melena, Nausea , Vomiting Genitourinary: Reports: No Symptoms Musculoskeletal: Reports: No Symptoms Skin: Reports: No Symptoms Neurological: Reports: No Symptoms - Patient Data Vitals - Most Recent: Last Vital Signs Temp 97.3 F 11/01/18 08:00 Pulse 78 11/01/18 08:00 Resp 16 11/01/18 08:00 BP 126/59 L 11/01/18 08:00 Pulse Ox 97 11/01/18 08:00 Weight - Most Recent: 124 lb I&O - Last 24 hours: Intake & Output 11/01/18 11/01/18 11/01/18 06:59 14:59 22:59 Intake Total 100 Balance 100 Med Orders - Current: Current Medications Discontinued Medications Acetaminophen (Tylenol) 650 mg PO Q4H PRN PRN Reason: Pain (Mild 1-3)/fever Amlodipine Besylate (Norvasc) 10 mg PO DAILY [facility] Last Admin: 11/01/18 07:43 Dose: 10 mg Bisacodyl (Dulcolax) 10 mg PO ONETIME ONE Stop: 10/29/18 18:01 Last Admin: 10/29/18 17:39 Dose: 10 mg Bisacodyl (Dulcolax) 10 mg PO ONETIME ONE Stop: 10/30/18 18:01 Last Admin: 10/30/18 19:32 Dose: 10 mg Ceftriaxone Sodium (Rocephin) 1 gm IVPUSH Q24H [facility] Last Admin: 10/31/18 16:23 Dose: 1 gm Metronidazole 500 mg/ Premix 100 mls @ 100 mls/hr IV Q8H [facility] Last Admin: 11/01/18 07:43 Dose: 100 mls/hr Lactated Ringer's (Ringers, Lactated) 1,000 mls @ 125 mls/hr IV ASDIRECTED [facility] Last Admin: 10/31/18 06:30 Dose: 125 mls/hr Meperidine HCl (Demerol) Confirm Administered Dose 25 mg .ROUTE .STK-MED ONE Stop: 10/31/18 06:41 Last Admin: 10/31/18 11:22 Dose: Not Given Meperidine HCl (Demerol) Confirm Administered Dose 50 mg .ROUTE .STK-MED ONE Stop: 10/31/18 06:41 Last Admin: 10/31/18 11:22 Dose: Not Given Meperidine HCl (Demerol) 25 mg IV .STK-MED ONE Stop: 10/31/18 07:07 Last Admin: 10/31/18 07:06 Dose: 25 mg Midazolam HCl (Versed 1 Mg/Ml) Confirm Administered Dose 6 mg .ROUTE .[facility]-MED ONE Stop: 10/31/18 06:40 Last Admin: 10/31/18 11:21 Dose: Not Given Midazolam HCl (Versed 1 Mg/Ml) 4 mg IV .K-MED ONE Stop: 10/31/18 07:07 Last Admin: 10/31/18 07:06 Dose: 4 mg Ptom Acetaminophen 8 Hour 650 Mg Tab 650 mg PO QPM [facility] Last Admin: 10/31/18 19:33 Dose: 650 mg Pantoprazole Sodium (Protonix Iv) 40 mg IVPUSH ACBREAKFAST [facility] Last Admin: 11/01/18 06:41 Dose: 40 mg Polyethylene Glycol (Miralax) 238 gm PO ONETIME ONE Stop: 10/30/18 18:01 Last Admin: 10/30/18 18:09 Dose: 238 gm Prednisolone Acetate (Pred Forte 1% Oph Susp) 0 ml EYERT BID [facility] Last Admin: 11/01/18 07:43 Dose: 1 drop Sodium Chloride (Saline Flush) 10 ml FLUSH ASDIRECTED PRN PRN Reason: Keep Vein Open Sodium Chloride (Saline Flush) 10 ml FLUSH ASDIRECTED PRN PRN Reason: Keep Vein Open Timolol Maleate (Timoptic 0.5% Oph Soln) 0 ml EYEBOTH BID [facility] Last Admin: 11/01/18 07:43 Dose: 1 drop - Exam General: Reports: Alert, Oriented HEENT: Reports: Mucous Membr. Moist/[place] Neck: Reports: Supple Lungs: Reports: Clear to Auscultation, Normal Respiratory Effort Cardiovascular: Reports: Regular Rate, Regular Rhythm GI/Abdominal Exam: Normal Bowel Sounds, Soft, Tender Extremities: Normal Inspection, No Pedal Edema Skin: Reports: Warm, Dry Neurological: Reports: No New Focal Deficit
== END 2018-11-01 10:50 | disposition home or self-care (01) | DRG 392 ==
LOC: CC.MS 09:20 → UNDOADMIN 09:33
PROVIDERS: ADMIT Family Medicine; ATTEND Family Medicine
PROC: 0DJD8ZZ Inspection of Lower Intestinal Tract, Via Natural or Artificial Opening Endoscopic (ICD-10-PCS; principal; 2018-10-31)
DX: K52.9 Noninfective gastroenteritis and colitis, unspecified (principal); K57.30 Diverticulosis of large intestine without perforation or abscess without bleeding; Z79.899 Other long term (current) drug therapy; Z79.52 Long term (current) use of systemic steroids
CPT/HCPCS: 45378; 97110-GP; 97161-GP; A9270-GY; C9113; J0696; J2175; J2250; J3490; J7120